=== PATIENT | male | born 1970 | race Caucasian/White ===

== ENCOUNTER → 2020-05-27 14:44 | Outpatient (CLI) | payer OTHER, SELFPAY ==
[2020-05-27 15:26] LABS: PSA,Total - Annual Screen 0.92 ng/mL (0.00-4.00)
[2020-05-27 17:21] LABS: Bacteria 0 SEEN /hpf (None Seen); Mucous, Urine 0 SEEN /hpf (<or=2+); Squamous Epithelial Cells - UA 0 SEEN /hpf (0-5); White Blood Cells 0 SEEN /hpf (0-5)
[2020-05-27 17:35] LABS: Color, Urine Yellow (Yellow); Glucose, Dipstick Normal (Normal); Ketone-Dipstick Negative (Negative); Leukocyte Esterase-Dipstick Negative /ul (Negative); Nitrite-Dipstick Negative (Negative); Occult Blood-Urine 25 /ul (Negative); Protein-Dipstick Negative (Negative); Specific Gravity, Urine 1.025 (1.002-1.030); Urine Bilirubin Dipstick Negative (Negative); Urine Clarity Clear (Clear); Urine Urobilinogen Normal (Normal)
[2020-05-27 17:46] LABS: Red Blood Cells-Urine 0-5 SEEN /hpf (0-5)
== END ==
PROVIDERS: PCP Family Medicine; Referring Provider Nurse Practitioner Adult Health; Visit Provider Nurse Practitioner Adult Health
DX: R31.9 Hematuria, unspecified (principal); Z12.5 Encounter for screening for malignant neoplasm of prostate
CPT/HCPCS: 36415; 81001; 84153; G0103

== ENCOUNTER 2021-09-05 09:54 | Day surgery (SDC) | payer OTHER, SELFPAY ==
--- NOTE | 2021-08-25 08:39 | EKG12_ITS ---
Test Reason : PREOP Blood Pressure : / mmHG Vent. Rate : 059 BPM Atrial Rate : 059 BPM P-R Int : 194 ms QRS Dur : 096 ms QT Int : 378 ms P-R-T Axes : 045 079 054 degrees QTc Int : 374 ms Sinus bradycardia Otherwise normal ECG Confirmed by VIRGIL ZAMARRIPA, LUIS ([id number]), sports editor ZEYAD MYERS ([id number]) on 08/26/2021 9:23:27 AM Referred By: UNA Confirmed By:LUIS HERMAN MD
[2021-09-05 10:16] VITALS: BP 155/90; PULSE 74; RESP 18; TEMP 37.1; O2SAT 100; BMI 34.0
[2021-09-05] MEDS: Lactated Ringers 1,000 ML 15 ML IV ×2 (10:29→13:33)
--- NOTE | 2021-09-05 13:12 | PCM.OPRPT ---
Problems Associated Problem List Diagnoses (1) Right inguinal hernia: Report of Operation Date of Procedure: 09/05/21 Pre-Operative Diagnosis: Right inguinal hernia Post-Operative Diagnosis: Direct right inguinal hernia Surgery/Procedure Performed:: Robotic assisted laparoscopic right inguinal hernia repair Surgeon: Mikey Sapp gym supervisor: Catherine Balderrama Type of Anesthesia: General Anesthesiologist: Nguyễn Shields Estimated Blood Loss (mL): < 25 Description of Procedure: Patient was brought into the operating room in the supine position. Under general anesthetic a Walsh catheter was placed. Patient was placed in the headdown position abdomen was sterilely prepped and draped in the usual fashion. Local was injected supraumbilically. Dissection was carried down to the fascia the fascia grasped with [place] varies needle was placed inside the abdomen the abdomen was insufflated to 15 torr a #8 trocar was placed in the abdomen. Under direct visualization 2 other #eights were placed on both the right and left side. Both of these under direct visualization no injury to underlying structures. The robot was brought in and docked appropriately I then went to the console. I scored the peritoneum on the right patient was noted to have a fairly large direct inguinal hernia no hernias on the left were identified I dissected down the pubic tubercle brought back a direct inguinal hernia dissected further laterally dissecting the cord and vessel structures free. I dissected further laterally. I had excellent hemostasis no indirect hernia was identified. I fashioned a large progrip mesh into the dissected area it laid completely flat covering all the defects quite nicely. I reperitonealized the area with a 3 OV lock suture. I had some slight oozing where the inferior epigastric vessels were I relooped and locked the V-Loc suture here and I had excellent hemostasis. I had a small rent in the peritoneum which I closed with a [id number] stitch of 3-0 Vicryl. The mesh covered completely. I deflated the abdomen waited for 5 minutes reinflated the abdomen saw no signs of any further bleeding on the rectus area. Trochars were subsequently removed. Skin incisions were closed with subcuticular stitches of 4-0 Monocryl. Steri-Strips were applied sterile dressings were applied and the patient tolerated the procedure well. Admit VTE Documentation VTE Present on Admission: No VTE Mechan Device Prophylaxis: SCD's VTE Pharm Prophylaxis ordered?: No Reason prophylaxis not ordered:: Treatment Not Indicated
[2021-09-05 13:23] VITALS: BP 127/88; BP 155/90; PULSE 81; RESP 16; TEMP 36.6; O2SAT 97
--- NOTE | 2021-09-05 13:27 | DCINST_ITS ---
Discharge Instructions Procedure Hernia Diet Discharge Diet: Light diet - advance as tolerated Activity Discharge Activity: Return to Normal Activity, May Drive (when you are no longer taking narcotic pain medications.) and May Shower (with the bandage in place 1-2 days after surgery.) Lifting Restrictions: 20 pounds for 8 weeks. Additional Activity Instructions:: Climbing stairs is fine, walking is e ncouraged. Sitting in bed may be uncomfortable. Sitting up using your lateral muscles (sitting up sideways) is usually more comfortable. Do not drive, work heavy equipment of sign legal documents for 24 hours. If your hernia repair was an ingunial repair, you may have scrotal swelling, an ice pack and/or athletic support can provide more comfort. Pain medications may cause nausea, you should typically eat light foods as you take your pain medications. Pain medications may also cause constipation. If you have difficulty with this, discuss with your doctor. Dressing / Incision Call your doctor if your incision/area has: Continuous Slow Oozing, Sudden Increased Bleeding, Increased Pain/ Swelling, Increased Redness and Foul Smelling Discharge Call your doctor if you observe: Fever of 101 or Higher Suture Line Care: Avoid Pulling/Pushing and Avoid Pinching/Bending Additional Dressing/Incision Instructions:: Leave the operative bandage on for 2-3 days. When you remove the bandage, leave the steri-strips on place until your follow up appointment or they fall off. Follow Up Care Please Follow Up With: Ina Norton PA-C When: Call office to schedule an appointment to be seen in 7 days. Test Results: Test results from this visit will be discussed in further detail at your follow-up appointment, if applicable. Discharge Plan Admission Attending Provider: Mikey Sapp Primary Care Provider: Phani Egan NP Discharge Orders/Prescriptions Prescriptions: New chlorpromazine 50 mg tablet 50 mg PO DAILY PRN (Reason: hiccups) Qty: 1 RF: 0 oxycodone-acetaminophen [Endocet] 5-325 mg tablet 1 tab PO Q4H PRN (Reason: pain) 5 Days Qty: 20 RF: 0 Continued multivitamin [Daily Multi-Vitamin] Tablet 1 tab PO DAILY RF: 0 ascorbic acid (vitamin C) [Vitamin C] 500 mg Tablet 500 mg PO DAILY RF: 0 zinc 50 mg Capsule 50 mg PO DAILY RF: 0 cholecalciferol (vitamin D3) [Vitamin D3] 25 mcg (1,000 unit) Tablet 25 mcg PO DAILY RF: 0 Quercetin 500 mg PO/SL DAILY RF: 0 Referrals / Follow Up: Mikey Sapp MD [STAFF PHYSICIAN] - Phani Egan FLOOR HELPER, FLOOR HELPER-C [Primary Care Provider] - Disposition Disposition (needs filled in before D/C Order can be placed): Home, Self Care
[2021-09-05 13:30] VITALS: BP 129/87; BP 155/90; PULSE 74; RESP 16; O2SAT 94
[2021-09-05 13:45] VITALS: BP 137/79; BP 155/90; PULSE 76; RESP 16; O2SAT 100
[2021-09-05 13:52] VITALS: BP 141/83; BP 155/90; PULSE 70; RESP 16; TEMP 36.3; O2SAT 93
[2021-09-05 14:30] VITALS: BP 155/90
== END 2021-09-05 23:59 | disposition home or self-care (01) ==
LOC: SDC 09:56 → AC 09:56
PROVIDERS: PCP Nurse Practitioner Primary Care; Referring Provider Surgery; Visit Provider Surgery
PROC: (CPT 49650; principal; 2021-09-05 11:40)
DX: K40.90 Unilateral inguinal hernia, without obstruction or gangrene, not specified as recurrent (principal)
CPT/HCPCS: 49650; S2900; 00840; 87426; 93005; J7120; J2405